=== PATIENT | male | born 1985 | race African-American/Black ===

== ENCOUNTER 2018-09-25 11:49 | Emergency (ER) | payer SELFPAY ==
[2018-09-25 12:03] VITALS: TEMP 98.1; BMI 24.8
--- NOTE | 2018-09-25 12:20 | PDOC ---
History of Present Illness - General Chief Complaint: Blood Sugar Problem Stated Complaint: FAILURE TO THRIVE / DIABETES Time Seen by Provider: 09/25/18 12:19 History Source: Patient Exam Limitations: No Limitations - History of Present Illness Initial Comments: 09/25/18 13:04 33 year old male with PMH HTN, IDDM presented to ED for chest pain x1 week, worsening today. Pt stated his pain is located to his epigastrium/substernal area, intermittent, aggravated by food, alleviated by not eating, nonradiating. Pt reported he only gets this pain when he eats, and he has resorted to only eating ice cream for the last week because this is the only food he can tolerate. Pt denied nausea/vomiting/diarrhea/fever/palpitations/shortness of breath/cough. Pt reported he frequently will develop coughing after eating. Pt mentioned his blood sugar was high 09/17/18. Allergies: NKDA Past History - Past Medical History Allergies/Adverse Reactions: Allergies Allergy/AdvReac Type Severity Reaction Status Date / Time No Known Allergies Allergy Verified 09/25/18 11:53 Home Medications: Ambulatory Orders Lisinopril [Zestril] 10 mg PO DAILY 02/27/15 Famotidine [Pepcid -] 20 mg PO BID #14 tablet 09/25/18 Insulin Glargine,Hum.rec.anlog [Basaglar Kwikpen U-100] unit SQ HS 09/25/18 Insulin Lispro [Humalog] unit SQ AC 09/25/18 COPD: No Diabetes: Yes Hypercholesterolemia: Yes - Immunization History Immunization Up to Date: Yes - Suicide/Smoking/Psychosocial Hx Smoking History: Never smoked Hx Alcohol Use: No Drug/Substance Use Hx: No Substance Use Type: None Review of Systems - Review of Systems Able to Perform ROS?: Yes Comments:: 09/25/18 13:02 General: denied fever, chills, generalized weakness. HEENT: denied sore throat, rhinorrhea, ear pain. Heart: admitted to chest pain. denied palpitations, syncope, diaphoresis. Respiratory: denied shortness of breath, cough, sputum production, hemoptysis. Abdomen: admitted to abdominal pain. denied nausea, vomiting, diarrhea, constipation, blood in stool. : denied dysuria, increased urinary frequency, hematuria, urinary incontinence , flank pain. Back: denied back pain. Musculoskeletal: denied joint pain, muscle pain, joint swelling. Neurological: denied headache, dizziness, numbness, tingling, weakness. Skin: denied rash, laceration, abrasion. *Physical Exam - Vital Signs Last Vital Signs Temp Pulse Resp BP Pulse Ox 98.1 F 79 18 120/74 98 09/25/18 12:02 09/25/18 12:02 09/25/18 12:02 09/25/18 12:02 09/25/18 12:02 - Physical Exam Comments: 09/25/18 13:04 Constitutional: Well-nourished, Well-developed, appearing stated age. HEENT: head is normocephalic, atraumatic. EOMI. PERRLA. Neck: supple. Full ROM. Heart: regular rhythm. no murmurs, rubs or gallops. Lungs: clear to auscultation bilaterally. no crackles, rhonchi or wheezing. no stridor. Abdomen: soft, flat, nontender. normal bowel sounds. no rebound, guarding, masses. membreno negative. Extremities: peripheral pulses intact. no lower extremity edema. Neurological: CN 2-12 grossly intact. moves all four extremities. Psych: awake, alert, oriented x3. follows commands. answers questions appropriately. ED Treatment Course - LABORATORY CBC & Chemistry Diagram: 09/25/18 13:00 09/25/18 13:00 Medical Decision Making - Medical Decision Making 09/25/18 12:41 33 year old male with above PMH presented to ED for epigastric/chest pain associated with eating. Examination revealed nontender abdomen. Initial Vital Signs Temp Pulse Resp BP Pulse Ox 98.1 F 79 18 120/74 98 09/25/18 12:02 09/25/18 12:02 09/25/18 12:02 09/25/18 12:02 09/25/18 12:02 Afebrile. No tachycardia. No tachypnea. No hypotension. No hypoxia on room air. Laboratory Results - last 24 hr 09/25/18 12:32 POC Glucometer 100 Labs ordered: CBC, CMP, acetone, lipase, troponin Imaging ordered: none Medications ordered: pepcid, maalox, normal saline bolus 1000 cc once EKG performed at 1356: rate 74, regular rhythm, normal axis, normal intervals, flat T in III otherwise no acute ST changes, early repolarization. 06/21/19 13:46 CBC WBC 6.7 K/mm3 (4.0-10.0) 09/25/18 13:00 RBC 4.55 M/mm3 (4.00-5.60) 09/25/18 13:00 Hgb 12.8 GM/dL (11.7-16.9) 09/25/18 13:00 Hct 37.3 % (35.4-49) 09/25/18 13:00 MCV 81.9 fl (80-96) 09/25/18 13:00 MCH 28.0 pg (25.7-33.7) 09/25/18 13:00 MCHC 34.2 g/dl (32.0-35.9) 09/25/18 13:00 RDW 14.0 % (11.9-15.9) 09/25/18 13:00 Plt Count 431 K/MM3 (134-434) 09/25/18 13:00 MPV 7.7 fl (7.5-11.1) 09/25/18 13:00 Absolute Neuts (auto) 3.9 K/mm3 (1.5-8.0) 09/25/18 13:00 Neutrophils % 58.1 % (42.8-82.8) 09/25/18 13:00 Lymphocytes % 29.2 % (8-40) 09/25/18 13:00 Monocytes % 9.8 % (3.8-10.2) 09/25/18 13:00 Eosinophils % 2.2 % (0-4.5) 09/25/18 13:00 Basophils % 0.7 % (0-2.0) 09/25/18 13:00 Nucleated RBC % 0 % (0-0) 09/25/18 13:00 No leukocytosis No anemia. 09/25/18 14:20 CMP Sodium 139 mmol/L (136-145) 09/25/18 13:00 Potassium 4.1 mmol/L (3.5-5.1) 09/25/18 13:00 Chloride 103 mmol/L (98-107) 09/25/18 13:00 Carbon Dioxide 31 mmol/L (21-32) 09/25/18 13:00 Anion Gap 5 MMOL/L (8-16) L 09/25/18 13:00 BUN 10.9 mg/dL (7-18) 09/25/18 13:00 Creatinine 1.0 mg/dL (0.55-1.3) 09/25/18 13:00 Est GFR (CKD-EPI)AfAm 113.31 09/25/18 13:00 Est GFR (CKD-EPI)NonAf 97.76 09/25/18 13:00 POC Glucometer 100 UNITS (80-120) 09/25/18 12:32 Random Glucose 86 mg/dL (74-106) 09/25/18 13:00 Calcium 9.3 mg/dL (8.5-10.1) 09/25/18 13:00 Total Bilirubin 0.5 mg/dL (0.2-1) 09/25/18 13:00 AST 24 U/L (15-37) 09/25/18 13:00 ALT 32 U/L (13-61) 09/25/18 13:00 Alkaline Phosphatase 83 U/L (45-117) 09/25/18 13:00 Troponin I < 0.02 ng/ml (0.00-0.05) 09/25/18 13:00 Total Protein 6.6 g/dl (6.4-8.2) 09/25/18 13:00 Albumin 3.2 g/dl (3.4-5.0) L 09/25/18 13:00 Lipase 415 U/L (73-393) H 09/25/18 13:00 No electrolyte abnormalities. No VEL. No transaminitis. Troponin wnl Lipase mildly elevated - not 3X normal - do not suspect pancreatitis. Acetone negative. 09/25/18 14:34 Pt reported he was able to keep all food down, but is still experiencing epigastric pain. Imaging ordered: CT abdomen/pelvis with IV contrast -Pt was given 1L normal saline prior 09/25/18 17:24 CXR my view: sharp costophrenic angles. no infiltrate. no cardiomegaly. no large pneumothorax. -Pending official report Disposition: discharged Discharge medication: Pepcid 20 mg BID x2 weeks 09/25/18 17:30 CT abdomen/pelvis with IV contrast report: Abdomen and pelvis CT with contrast Clinical information given: epigastric/chest pain with eating Multiplanar imaging was performed following the intravenous administration of nonionic contrast. As requested enteric contrast was not administered. No prior imaging studies are available at this facility for direct comparison. There is equivocal mild concentric wall thickening of the partially imaged lower thoracic esophagus. The remainder of the partially imaged lower chest appears unremarkable. No hiatal hernia is visualized. No evidence of pneumoperitoneum, free intraperitoneal fluid or bowel obstruction. There is no gastric distention. The gallbladder appears mildly contracted which could be on a physiologic basis versus secondary to chronic cholecystitis. No definite radiopaque biliary calculus is visualized. There is no definite biliary tract dilatation. The liver, spleen, pancreas, adrenal glands and kidneys demonstrate no discrete pathology. No aortic aneurysm is identified. There is no obvious lymphadenopathy. No gross noncontrast small bowel or gastric pathology is seen. The appendix appears unremarkable. Sigmoid diverticulosis is noted without obvious evidence of acute diverticulitis. There is no obvious acute colitis. A 2.7 x 2.3 cm hypodense focus is seen within the right inferior pelvis possibly representing incidental minimal to mild focal small bowel dilatation and probably less likely a small bowel diverticulum or hypodense mesenteric nodule ( transaxial images 134 - 136). Small umbilical hernia containing fat only. Colonic fecal retention which is probably moderate. The visualized osseous structures demonstrate no obvious acute pathology. Impression: Equivocal mild concentric wall thickening of the partially imaged lower thoracic esophagus is noted - ? possible esophagitis. Within the abdomen and pelvis no definite CT findings of acute pathology are seen. Within the right lower pelvis a 2.7 x 2.3 cm hypodense focus is noted which may represent incidental transient minimal to mild focal small bowel dilatation and probably less likely a small bowel diverticulum or nonspecific mesenteric nodule. Correlation with 2 month follow- up CT is suggested with oral contrast to document resolution/stability. Alternatively MRI evaluation may be performed. Reported By: Michael Bender MD 09/25/18 1724 09/25/18 17:45 Pt informed of results and given a copy of CT report. Pt informed to follow up with PCP/GI. Pt given multiple GI referrals. Pt informed of need for follow up CT in 2 months. Pt expressed understanding. Disposition: Discharged Discharge medication: Pepcid 20 mg PO BID x14 pills *DC/Admit/Observation/Transfer Diagnosis at time of Disposition: Chest pain, Esophagitis - Discharge Dispostion Disposition: HOME Condition at time of disposition: Improved Decision to Admit order: No - Prescriptions Prescriptions: Famotidine [Pepcid -] 20 mg PO BID #14 tablet - Referrals Referrals: Efra Ratliff MD [Staff Physician] - Memo Dowling MD [Staff Physician] - Juan Antonio Leigh DO [Staff Physician] - Carla Cruz MD [Staff Physician] - - Patient Instructions Printed Discharge Instructions: DI for Gastroesophageal Reflux Disease (GERD), DI for Chest Pain, GERD Diet Additional Instructions: You were seen today for chest pain. Likely you have acid reflux, but you need to be evaluated by your primary care doctor and printed circuit boards router for possible endoscopy and further workup. Your CT showed you have inflammation of your esophagus, follow up with GI on this finding. Your CT showed you have a outpouching of your bowel, follow up with GI on this finding, it was recommended that you have another CT performed in 2 months. Follow up with a printed circuit boards router within 4 days. Your care is not complete until you follow up. Bring all paperwork given to you today to your appointment. I have given you multiple referrals. Follow up with a primary care doctor within 3 days. Your care is not complete until you follow up. Bring all paperwork given to you today to your appointment. I have sent a prescription to your pharmacy for Pepcid, to treat the acid, pick it up today and take as advised on label. I have included information on the GERD Diet - which includes foods to avoid. Return to the Emergency Department for increasing pain, chest pain, shortness of breath, severe abdominal pain, lightheadedness like you may pass out, vomiting, blood in vomit, or any other new, worsening or concerning symptoms. - Post Discharge Activity Forms/Work/School Notes: Back to Work
[2018-09-25] MEDS ORDERED: FAMOTIDINE 20 MG/50 ML IVPB 20 MG/50 ML MG IVPB ONE ×2 (12:59→13:07)
[2018-09-25] MEDS ORDERED: MAG HYDROX/AL HYDROX/SIMETH 30 ML UNIT-DOSE CUP PO ONE (12:59)
[2018-09-25] MEDS ORDERED: SODIUM CHLORIDE 1,000 ML IV STA (12:59)
[2018-09-25] MEDS ORDERED: MAG HYDROX/AL HYDROX/SIMETH 30 ML UNIT-DOSE CUP ONE (13:07)
[2018-09-25 13:36] LABS: BASO % 0.7 % (0-2.0); EOS % 2.2 % (0-4.5); HEMATOCRIT 37.3 % (35.4-49); HEMOGLOBIN 12.8 GM/dL (11.7-16.9); LYMPH % 29.2 % (8-40); MCHC 34.2 g/dl (32.0-35.9); MEAN CELL VOLUME 81.9 fl (80-96); MEAN PLT VOLUME 7.7 fl (7.5-11.1); MONO % 9.8 % (3.8-10.2); NEUT % 58.1 % (42.8-82.8); PLATELET COUNT 431 K/MM3 (134-434); RBC 4.55 M/mm3 (4.00-5.60); WHITE BLOOD COUNT 6.7 K/mm3 (4.0-10.0)
[2018-09-25 14:17] LABS: ALBUMIN 3.2 g/dl (3.4-5.0); ALK PHOS 83 U/L (45-117); ANION GAP 5 MMOL/L (8-16); BILIRUBIN,TOTAL 0.5 mg/dL (0.2-1); BLOOD UREA NITROGEN 10.9 mg/dL (7-18); CALCIUM 9.3 mg/dL (8.5-10.1); CHLORIDE 103 mmol/L (98-107); CO2 31 mmol/L (21-32); GLUCOSE,RANDOM 86 mg/dL (74-106); LIPASE 415 U/L (73-393); POTASSIUM 4.1 mmol/L (3.5-5.1); SGOT/AST 24 U/L (15-37); SGPT/ALT 32 U/L (13-61); SODIUM 139 mmol/L (136-145); TOT PROT 6.6 g/dl (6.4-8.2)
--- NOTE | 2018-09-25 14:36 | PDOC ---
Documentation entered by Robert Moscoso SCRIBE, acting as scribe for Chelle Moncada MD. Chelle Moncada MD: This documentation has been prepared by the Danis may Daniel, SCRIBE, under my direction and personally reviewed by me in its entirety. I confirm that the documentation accurately reflects all work, treatment, procedures, and medical decision making performed by me. Attending Attestation - Resident Resident Name: ArmandoChyna - ED Attending Attestation I have performed the following: I have examined & evaluated the patient, The case was reviewed & discussed with the resident, I agree w/resident's findings & plan, Exceptions are as noted - HPI HPI: 09/25/18 13:22 The patient is a 33 year old male with a past medical history of HTN and insulin dependent type 2 diabetes here today for evaluation of chest pain. The patient reports that he has had 9 days of lower left sided chest pain that occurs only after eating. When asked where the pain is, he points to the junction btwn his LUQ and just inferior to the sternum. He reports that last (09/17/18) his sugar was high in the setting of cold symptoms and he vomited multiple times and his symptoms started after that. He notes that the only food that doesnt cause the chest pain is ice cream and so has only been eating ice cream recently. He also notes having a cough after eating. He went to urgent care a few days ago where he reportedly had a normal EKG and normal labs. Pain has been persistent since prompting ED visit. Patient denies headache, lightheadedness, weakness/numbness, diaphoresis. Denies fever, chills. Denies shortness of breath. Denies nausea, vomiting, diarrhea. Allergies: NKA - Physicial Exam PE: 09/25/18 13:22 GENERAL: Awake, alert, and fully oriented, in no acute distress. Well appearing pt HEAD: No signs of trauma EYES: PERRLA, EOMI, sclera anicteric, conjunctiva clear ENT: Oropharynx clear without exudates. Moist mucosa NECK: Normal ROM, supple, no lymphadenopathy, JVD, or masses LUNGS: Breath sounds equal, clear to auscultation bilaterally. No wheezes, and no crackles HEART: Regular rate and rhythm, normal S1 and S2, no murmurs, rubs or gallops ABDOMEN: Soft, nontender, normoactive bowel sounds. No guarding, no rebound. No masses. No CVAT. EXTREMITIES: Normal range of motion, no edema. No cords, erythema, or tenderness BACK: No midline spinal tenderness in cervical/thoracic/lumbar region NEUROLOGICAL: Normal speech, cranial nerves intact, equal strength and sensation b/l SKIN: Warm, Dry, normal turgor, no rashes or lesions noted. - Medical Decision Making 09/25/18 14:31 33yo M hx NIDDM, HTN presents to the ED with LUQ pain after eating only Symptoms began after vomiting 1 week ago multiple times Vitals and exam unremarkable In light of ACS risk factors, an EKG and trop were done which were unremarkable DDx inlcudes gastritis vs PUD vs gastric ulcer vs pancreatitis It's also possible that pt had a christofer padilla tear from vomiting 1 week ago Labs are wnl, lipase mildly elevated but no where near 3x upper limit. Pt has no hx pancreatitis, excessive etoh use, new meds After GI cocktail, pt feels better and keeping food down but has persistent LUQ pain Plan for CTAP, reassess 09/25/18 17:31 CTAP with possible esophagitis and incidental possible diverticulum vs nodule Symptoms likely 2/2 to esophagitis Pt referred to GI for endoscopy for further evaluation FOr now his pain is well controlled and he was able to eat a tray of food with no vomiting WIll give pepcid, hold off on PPI so they can test for H.pylori Pt clinically stable for DC home I discussed the physical exam findings, ancillary test results and final diagnoses with the patient. I answered all of the patient's questions. The patient was satisfied with the care received and felt comfortable with the discharge plan and treatment plan. The patient will call their primary care physician within 24 hours to arrange follow-up and will return to the Emergency Department with any new, persistent or worsening symptoms. Heart Score/ECG Review #1 09/25/18 14:30 Twelve-lead EKG was performed and reviewed by me. Normal sinus rhythm, rate 74. Normal axis. Early repolarization in V2 -V4 with no reciprocal depressions most consistent with early repolarization. No T-wave inversions.
[2018-09-25 15:33] LABS: ACETONE SERUM NEGATIVE (NEGATIVE)
[2018-09-25 17:51] VITALS: BP 134/72; PULSE 82
--- NOTE | 2018-09-26 12:56 | EKG ---
Test Reason : Blood Pressure : / mmHG Vent. Rate : 074 BPM Atrial Rate : 074 BPM P-R Int : 162 ms QRS Dur : 090 ms QT Int : 370 ms P-R-T Axes : 051 016 035 degrees QTc Int : 410 ms NORMAL SINUS RHYTHM ST ELEVATION, CONSIDER EARLY REPOLARIZATION INCOMPLETE RIGHT BUNDLE BRANCH BLOCK NO PREVIOUS ECGS AVAILABLE Confirmed by JARRED NOLEN MD ([id number]) on 09/26/2018 12:56:48 PM Referred By: Confirmed By:JARRED NOLEN MD
== END 2018-09-25 17:51 | disposition home or self-care (01) ==
LOC: JER 11:49
PROC: 3E033GC Introduction of Other Therapeutic Substance into Peripheral Vein, Percutaneous Approach (ICD-10-PCS; principal; 2018-09-25)
PROC: 3E0337Z Introduction of Electrolytic and Water Balance Substance into Peripheral Vein, Percutaneous Approach (ICD-10-PCS; 2018-09-25)
DX: K20.9 Esophagitis, unspecified (principal); R07.9 Chest pain, unspecified; E11.9 Type 2 diabetes mellitus without complications; E78.00 Pure hypercholesterolemia, unspecified; Z79.4 Long term (current) use of insulin; I10 Essential (primary) hypertension
CPT/HCPCS: 36415; 71045-TC-FY; 74177-TC; 80053; 82009; 82962; 83690; 84484; 85025; 93005; 93010; 99283-25; J7030

== ENCOUNTER 2023-06-16 14:50 | Emergency (ER) | payer SELFPAY ==
[2023-06-16 15:21] VITALS: TEMP 98.1; BMI 24.3
[2023-06-16] MEDS: SODIUM CHLORIDE 0.9% 500 ML INFUS.BAG IV ONE (15:30)
[2023-06-16 15:40] LABS: HEMATOCRIT 37.4 % (35.4-49); HEMOGLOBIN 12.4 G/dL (11.7-16.9); MCH 28.3 pg (25.7-33.7); MCHC 33.2 g/dl (32.0-35.9); MEAN CELL VOLUME 85.3 fl (80-96); MEAN PLT VOLUME 8.6 fl (7.5-11.1); PLATELET COUNT 240.4 10^3/uL (134-434); RBC 4.39 10^6/uL (4.00-5.60); RDW 15.4 % (11.9-15.9); WHITE BLOOD COUNT 9.2 10^3/uL (4.0-10.8)
[2023-06-16 15:47] LABS: EPITHELIAL CELLS 0-5 /hpf
[2023-06-16 15:51] LABS: ALBUMIN 3.8 g/dl (3.4-5.0); ALK PHOS 90 U/L (45-117); ANION GAP 19 mmol/L (4-13); BILIRUBIN,TOTAL 0.8 mg/dl (0.2-1); CALCIUM 8.7 mg/dl (8.5-10.1); CHLORIDE 90 mmol/L (98-107); CO2 18 mmol/L (21-32); CREATININE 1.3 mg/dl (0.6-1.3); POTASSIUM 4.5 mmol/L (3.5-5.1); SGOT/AST 22 U/L (15-37); SGPT/ALT 19 U/L (7-52); SODIUM 127 mmol/L (136-145); TOT PROT 5.9 g/dl (6.4-8.2)
[2023-06-16 16:04] LABS: GLUCOSE,RANDOM 750 mg/dl (74-106)
[2023-06-16 16:25] LABS: PLATELET ESTIMATE ADEQUATE
[2023-06-16] MEDS: SODIUM CHLORIDE 0.9% 1000 ML INFUS.BAG IV ONE (16:30)
[2023-06-16] MEDS: INSULIN REGULAR HUMAN 100 UNITS/ML *VIAL IVPUSH ONE (16:45)
[2023-06-16 17:52] LABS: VENOUS BASE EXCESS -5.6 mmol/L (-2-2); VENOUS PCO2 38.5 mmHg (38-52); VENOUS PH 7.327 (7.310-7.410)
[2023-06-16 18:31] LABS: CALCIUM 8.6 mg/dl (8.5-10.1); CREATININE 1.1 mg/dl (0.6-1.3); POTASSIUM 3.9 mmol/L (3.5-5.1)
[2023-06-16] MEDS: INSULIN (LEVEMIR) 100 UNITS/ML UNITS SQ ONE (19:08)
[2023-06-16 20:30] VITALS: BP 128/64; PULSE 79; RESP 16
== END 2023-06-16 19:30 | disposition admitted as inpatient to this hospital (09) ==
LOC: FER 14:50
PROC: 3E033VG Introduction of Insulin into Peripheral Vein, Percutaneous Approach (ICD-10-PCS; principal; 2023-06-16)
PROC: 3E013VG Introduction of Insulin into Subcutaneous Tissue, Percutaneous Approach (ICD-10-PCS; 2023-06-16)
DX: E10.65 Type 1 diabetes mellitus with hyperglycemia (principal); R11.0 Nausea
CPT/HCPCS: 36415; 80048; 80053; 81003; 81015; 82803; 82962; 83605; 85027; 87086; 93005; 93010; 99284-25